=== PATIENT | female | born 1950 | race Caucasian/White ===

== ENCOUNTER 2020-06-08 14:40 | Outpatient (CLI) | payer MEDICARE, SELFPAY ==
--- NOTE | 2020-06-08 14:59 | MR_ITS ---
WS: [id number] MRI LEFT KNEE HISTORY: CHRONIC PAIN OF LEFT KNEE COMPARISON: None available. Anterior cruciate ligament: There is mild posterior buckling of the ACL but it does appear to be inta ct although mild internal derangement. Posterior cruciate ligament: Intact. Medial collateral ligament: Increased edema surrounding the MCL. There is partial tear of the proxima l MCL. Increased T2 signal within the deep fibers of the ligament. No significant retraction although there is a significant amount of fluid extending inferiorly over the proximal tibia. There is increa sed signal in the semimembranosus tendon and also at the level of the tibial plateau consistent with a partial tear. Posterior lateral corner structures: Intact. Medial menisci: Abnormal signal within the posterior horn with fraying along the surfaces. Small santino shireen meniscus with a radial tear towards the meniscal root. Lateral meniscus: Intact. Normal signal, size and shape. Extensor mechanism: Distal quadriceps tendon and patellar tendons are intact. Fluid and soft tissue: Moderate-sized joint effusion. There is a moderate amount of soft tissue edema surrounding the knee but greatest along the MCL. No Estrada's cyst. Osseous and articular structures: Patellofemoral compartment: Moderate thinning of the patellar cartilage. No marrow edema. Medial compartment: Mild narrowing of the medial compartment with loss of cartilage. There are severa l full-thickness defects. Marrow edema on both sides of the joint. Lateral compartment: Mild narrowing of the lateral compartment. 6 mm osteochondral defect along the t ibial plateau. MR/MR knee LT wo con* [id number] IMPRESSION: 1. Partial tear with grade 2 sprain MCL. Additional partial tear semimembranos us tendon at the level of the tibial plateau. 2. Complete full-thickness tear posterior horn medial meniscus towards the men iscal root. 3. Moderate loss of cartilage with marrow edema in the medial femoral condyle and medial tibial plateau. 4. Small osteochondral lesion lateral tibial plateau. 5. Moderate chondromalacia patella.
== END 2020-06-08 14:41 | disposition home or self-care (01) ==
PROVIDERS: Family Provider Registered Nurse; PCP Registered Nurse; Visit Provider Registered Nurse
DX: G89.29 Other chronic pain (principal); S83.412A Sprain of medial collateral ligament of left knee, initial encounter; S83.242A Other tear of medial meniscus, current injury, left knee, initial encounter; X58.XXXA Exposure to other specified factors, initial encounter; R60.0 Localized edema; M22.42 Chondromalacia patellae, left knee
CPT/HCPCS: 73721

== ENCOUNTER 2020-06-27 08:54 | Outpatient (CLI) | payer MEDICARE, SELFPAY ==
--- NOTE | 2020-06-27 08:58 | USCV_ITS ---
Jeanne Saini Age: 70 Gender: F : 1950 Exam Date: 06/27/2020 09:13 Ordering Phys: Gaby Medina Technologist: Claudette Holm Exam Location: [facility] Indication: EDEMA, CHEST PAIN BP: / HR: 82 Rhythm: Sinus Technical Quality: Adequate MEASUREMENTS (Male / Female) Normal Values 2D ECHO LV Diastolic Diameter PLAX 4.6 cm 4.2 - 5.9 / 3.9 - 5.3 cm LV Systolic Diameter PLAX 2.8 cm IVS Diastolic Thickness 1.0 cm 0.6 - 1.0 / 0.6 - 0.9 cm IVS Systolic Thickness 1.4 cm LVPW Diastolic Thickness 0.9 cm 0.6 - 1.0 / 0.6 - 0.9 cm LVPW Systolic Thickness 1.6 cm LVOT Diameter 2.1 cm LV Ejection Fraction 2D Teich 70.9 % LV Ejection Fraction MOD 2C 81.9 % LV Ejection Fraction 2C AL 84.0 % LA Diameter 3.6 cm LA Width 3.3 cm LA Height 5.3 cm RA Width 2.6 cm RA Height 4.7 cm M-MODE LV Diastolic Diameter MM 6.1 cm 4.2 - 5.9 / 3.9 - 5.3 cm LV Systolic Diameter MM 4.1 cm LV Ejection Fraction MM Teich 59.5 % IVS Diastolic Thickness MM 0.9 cm 0.6 - 1.0 / 0.6 - 0.9 cm IVS Systolic Thickness MM 1.3 cm LVPW Diastolic Thickness MM 0.9 cm 0.6 - 1.0 / 0.6 - 0.9 cm LVPW Systolic Thickness MM 1.6 cm Aortic Annulus Diameter 2.9 cm LA Ao Ratio MM 1.4 MV E Point Septal Separation 0.8 cm DOPPLER AV Peak Velocity 161.0 cm/s LVOT Peak Velocity 140.0 cm/s AV Area Cont Eq vti 3.3 cm squared AV Area Cont Eq pk 2.9 cm squared MV Peak Velocity 88.0 cm/s MV Area PHT 3.6 cm squared Mitral E to A Ratio 0.8 MV E' Velocity 40.5 cm/s Mitral E to MV E' Ratio 11.1 Mitral E to LV E' Lateral Ratio 11.1 Mitral E to LV E' Septal Ratio 11.3 TR Peak Velocity 105.0 cm/s TR Peak Gradient 4.4 mmHg Right Atrial Pressure 3.0 mmHg Pulmonary Artery Systolic Pressu 7.4 mmHg PV Peak Velocity 144.7 cm/s RV Acceleration Time 0.1 s FINDINGS Left Ventricle Normal left ventricular size and systolic function, EF 80 %. No regional wall motion abnormalities. Grade I/IV diastolic dysfunction (abnormal relaxation filling pattern), normal to mildly elevated filling pressures. Right Ventricle The right ventricle is normal in size and function. Right Atrium The right atrium is normal in size. Left Atrium Mildly increased left atrial size. Mitral Valve Moderate mitral valve regurgitation. Aortic Valve Thickened aortic valve. Trace aortic valve regurgitation. Tricuspid Valve No gross abnormalities noted. Pulmonic Valve No gross abnormalities noted Pericardium Normal pericardium without effusion. Aorta Normal ascending aorta dimension. CONCLUSIONS Normal left ventricular size and systolic function, EF 80 %. No regional wall motion abnormalities. Grade I/IV diastolic dysfunction (abnormal relaxation filling pattern), normal to mildly elevated filling pressures. Moderate mitral valve regurgitation. Thickened aortic valve. Trace aortic valve regurgitation. Mildly increased left atrial size. There is no pericardial effusion. There are no intracardiac masses. No previous study is available for comparison. Dr Rianna De La O MD [facility] (Electronically Signed) Final Date: 27 June 2020 18:27 S
== END 2020-06-27 08:55 | disposition home or self-care (01) ==
LOC: US 08:57
PROVIDERS: PCP Family Medicine; Visit Provider Registered Nurse
DX: R79.89 Other specified abnormal findings of blood chemistry (principal); R60.0 Localized edema; R07.9 Chest pain, unspecified; I34.0 Nonrheumatic mitral (valve) insufficiency; I35.8 Other nonrheumatic aortic valve disorders
CPT/HCPCS: 93306

== ENCOUNTER 2023-03-17 09:40 | Outpatient (CLI) | payer MEDICARE, SELFPAY ==
--- NOTE | 2023-03-17 09:51 | MM_ITS ---
WS: [id number] BILATERAL 3D TOMOSYNTHESIS DIGITAL SCREENING MAMMOGRAPHY WITH CAD CLINICAL INFORMATION: SCREENING HISTORY: Screening mammogram. No current complaints. COMPARISON: None. TECHNIQUE: Bilateral CC and MLO views. FINDINGS: Scattered fibroglandular densities bilaterally. No suspicious focal mass, asymmetry, calcifications, or architectural distortion. No evidence of malignancy. Vascular calcification. MM/[place] [id number] IMPRESSION: BI-RADS: 2-Benign FOLLOW UP: 1 Year Follow-up Recommend return to annual screening mammography.
== END 2023-03-17 09:41 | disposition home or self-care (01) ==
LOC: RAD 09:44
PROVIDERS: PCP Family Medicine; Visit Provider Family Medicine
DX: Z12.31 Encounter for screening mammogram for malignant neoplasm of breast (principal)
CPT/HCPCS: 77063; 77067